=== PATIENT | male | born 1990 | race Two or more races ===

== ENCOUNTER 2025-01-25 14:43 | Emergency (ER) | payer OTHER ==
[~2025-01-25] VITALS: Ht 177.8 cm; Wt 110.8 kg
[2025-01-25] MEDS ORDERED: IBUP200C25 PO (14:56)
[2025-01-25] MEDS ORDERED: ACET-683 PO (14:56)
[2025-01-25] MEDS: IBUPROFEN 400 MG TAB PO ONE (15:26)
[2025-01-25] MEDS: NS (Normal Saline) 0.9% 1,000 ML IV ONE (16:46)
[2025-01-25] MEDS: ACETAMINOPHEN *IV* 1,000 MG in IV 1 EA IV ONE (16:48)
[2025-01-25 17:16] LABS: MONO SCRN NEGATIVE (NEGATIVE)
[2025-01-25] MEDS ORDERED: PENI500T PO (17:29)
[2025-01-25] MEDS: PENICILLIN V POTASSIUM 500 MG TAB PO ONE (17:30)
[2025-01-25 17:39] VITALS: BP 115/67; TEMP 98.9; O2SAT 97
== END 2025-01-25 17:40 | disposition home or self-care (01) ==
LOC: M ED 14:43
DX: J02.0 Streptococcal pharyngitis (principal)
CPT/HCPCS: 86308; 87486; 87581; 87633; 87798; 87880; 96365; 96375; 99284; J0131; J2765